=== PATIENT | male | born 1990 | race African-American/Black ===

== ENCOUNTER → 2021-01-15 | Outpatient (CLI) | payer OTHER ==
--- NOTE | 2021-01-15 16:50 | KCIC ---
EXAM: Left knee, 3 views. HISTORY: Pain. COMPARISON: None. FINDINGS: 3 views of the left knee are obtained. There is no fracture, dislocation or subluxation. Th ere is trace joint fluid IMPRESSION: Trace joint fluid. No acute osseous finding. Electronically signed by: Glenys Levy MD (01/15/2021 4:48 PM) [id number]
== END ==
LOC: KCIC 16:10
PROVIDERS: ATTEND Physician Assistant Medical
DX: M25.362 Other instability, left knee (principal)
CPT/HCPCS: 73562